=== PATIENT | female | born 1970 | race Caucasian/White ===

== ENCOUNTER → 2018-10-21 | Outpatient (CLI) | payer MEDICARE ==
[2018-10-23 06:44] LABS: Anion Gap 7 mmol/L (6-16); CO2, Blood 25 mmol/L (21-32); Chloride, Blood 102 mmol/L (98-108); Sodium, Blood 134 mmol/L (136-145)
[2018-10-23 06:45] LABS: Alanine Aminotransfer (ALT/SGP 21 U/L (12-78); Albumin, Blood 3.3 g/dL (3.4-5.0); Albumin/Globulin Ratio 0.7 (0.8-1.8); Alk Phos 95 U/L (50-136); Aspartate Aminotrans (AST/SGOT 21 U/L (12-37); Bilirubin, Total 0.4 mg/dL (0.1-1.0); Blood Urea Nitrogen 4 mg/dL (8-24); Bun/Creatinine Ratio 7.7 (12.0-20.0); Calcium, Blood 8.9 mg/dL (8.5-10.1); Creatinine, Blood 0.52 mg/dL (0.40-1.00); Globulin, Blood 4.5 g/dL (2.2-4.0); Glomerular Filtration Rate >60 (60-); Glucose, Blood 109 mg/dL (70-99); Total Protein, Blood 7.8 g/dL (6.4-8.2)
== END | disposition home or self-care (01) ==
LOC: LAB 19:25 → LAB SHORT 19:25
PROVIDERS: Nurse Practitioner
DX: F25.1 Schizoaffective disorder, depressive type (principal); R06.02 Shortness of breath; R09.02 Hypoxemia
CPT/HCPCS: 80053; 85379